=== PATIENT | male | born 1945 | race Caucasian/White ===

== ENCOUNTER 2018-03-06 21:07 | Inpatient (IN) | payer MEDICARE ==
[~2018-03-06] VITALS: Ht 167.6 cm; Wt 74.9 kg
[~2018-03-06 21:07] MED LIST: ALBU3IS INH; ALBU90OI6 INH; ASPI81CH PO; AZIT500 PO; Aspir 8181 MG PO; Ativan1 MG PO; CARV3.125 PO; CEFP200 PO; CEFU500 PO; CODGUAEL PO; FLUSAL2505 INH; FURO20 PO; GUAI600T33 PO; MILLIPRED DP5 MG PO; Metamucil Smooth1 EA PO; PRED10 PO; PREDNISONE; TAMS.4ER PO; TIOT18 INH
[2018-03-06] MEDS ORDERED: BUDE6HFA INH (21:22)
[2018-03-06 21:34] LABS: BASOPHILS ABSOLUTE AUTO 0.04 K/mm3 (0.00-0.23); BASOPHILS PERCENT AUTO 1 % (0-2); EOSINOPHILS ABSOLUTE AUTO 0.24 K/mm3 (0.00-0.68); EOSINOPHILS PERCENT AUTO 3 % (0-6); Hematocrit 43.6 % (37.0-53.0); Hemoglobin 14.2 g/dL (13.5-17.5); IMMATURE GRAN ABSOLUTE AUTO 0.03 K/mm3 (0.00-0.10); IMMATURE GRAN PERCENT AUTO 0 % (0-1); LYMPHOCYTES ABSOLUTE AUTO 1.33 K/mm3 (0.84-5.20); LYMPHOCYTES PERCENT AUTO 16 % (21-46); MONOCYTES ABSOLUTE AUTO 0.54 K/mm3 (0.16-1.47); MONOCYTES PERCENT AUTO 6 % (4-13); Mean Corpuscular HGB 29.4 pg (26.0-34.0); Mean Corpuscular HGB Conc 32.6 g/dL (31.5-36.5); Mean Corpuscular Volume 90 fL (80-100); NEUTROPHILS PERCENT AUTO 75 % (41-73); Platelet Count 282 K/mm3 (150-400); RDW Coefficient Variation 12.8 % (11.7-14.2); Red Blood Cell Count 4.83 M/mm3 (4.30-5.90); White Blood Cell Count 8.58 K/mm3 (4.00-11.30)
[2018-03-06 21:46] LABS: International Normalized Ratio 1.1; Prothrombin Time Results 11.5 Sec (9.7-11.5)
[2018-03-06 22:09] LABS: Alanine Aminotransfer (ALT/SGP 17 U/L (12-78); Albumin, Blood 3.7 g/dL (3.4-5.0); Albumin/Globulin Ratio 1.2 (0.8-1.8); Alk Phos 86 U/L (50-136); Anion Gap 2 mmol/L (6-16); Aspartate Aminotrans (AST/SGOT 18 U/L (12-37); Bilirubin, Total 0.3 mg/dL (0.1-1.0); Blood Urea Nitrogen 15 mg/dL (8-24); Bun/Creatinine Ratio 18.3 (12.0-20.0); CO2, Blood 35 mmol/L (21-32); Calcium, Blood 8.6 mg/dL (8.5-10.1); Chloride, Blood 103 mmol/L (98-108); Creatinine, Blood 0.82 mg/dL (0.60-1.20); Globulin, Blood 3.2 g/dL (2.2-4.0); Glomerular Filtration Rate >60 (60-); Glucose, Blood 110 mg/dL (70-99); Potassium, Blood 4.2 mmol/L (3.5-5.5); Sodium, Blood 140 mmol/L (136-145); Total Protein, Blood 6.9 g/dL (6.4-8.2); Troponin I <0.015 ng/mL (0.000-0.040)
[2018-03-06] MEDS ORDERED: GUAI600T33 PO (23:22)
[2018-03-06] MEDS ORDERED: FINA5 PO (23:23)
[2018-03-06] MEDS ORDERED: CARV6.25 PO (23:23)
[2018-03-06 23:32] LABS: Base Excess Venous 7.9 mmol/L; Bicarbonate Venous 29.5 mmol/L (24.0-30.0); PCO2 Venous 65.6 mmHg (38-42); PO2 Venous 83.5 mmHg (38-42); pH Blood Venous 7.32 (7.34-7.37)
[2018-03-07 04:56] LABS: BASOPHILS ABSOLUTE AUTO 0.01 K/mm3 (0.00-0.23); BASOPHILS PERCENT AUTO 0 % (0-2); EOSINOPHILS ABSOLUTE AUTO 0.02 K/mm3 (0.00-0.68); EOSINOPHILS PERCENT AUTO 0 % (0-6); Hematocrit 41.4 % (37.0-53.0); Hemoglobin 13.3 g/dL (13.5-17.5); IMMATURE GRAN ABSOLUTE AUTO 0.02 K/mm3 (0.00-0.10); IMMATURE GRAN PERCENT AUTO 0 % (0-1); LYMPHOCYTES ABSOLUTE AUTO 0.35 K/mm3 (0.84-5.20); LYMPHOCYTES PERCENT AUTO 5 % (21-46); MONOCYTES ABSOLUTE AUTO 0.03 K/mm3 (0.16-1.47); MONOCYTES PERCENT AUTO 0 % (4-13); Mean Corpuscular HGB 29.3 pg (26.0-34.0); Mean Corpuscular HGB Conc 32.1 g/dL (31.5-36.5); Mean Corpuscular Volume 91 fL (80-100); NEUTROPHILS PERCENT AUTO 94 % (41-73); Platelet Count 242 K/mm3 (150-400); RDW Coefficient Variation 12.8 % (11.7-14.2); RDW Standard Deviation 43.1 fL (35.1-46.3); Red Blood Cell Count 4.54 M/mm3 (4.30-5.90); White Blood Cell Count 6.93 K/mm3 (4.00-11.30)
[2018-03-07 05:21] LABS: Anion Gap 4 mmol/L (6-16); Blood Urea Nitrogen 11 mg/dL (8-24); Bun/Creatinine Ratio 15.9 (12.0-20.0); CO2, Blood 34 mmol/L (21-32); Calcium, Blood 8.6 mg/dL (8.5-10.1); Chloride, Blood 104 mmol/L (98-108); Creatinine, Blood 0.69 mg/dL (0.60-1.20); Glomerular Filtration Rate >60 (60-); Glucose, Blood 156 mg/dL (70-99); Potassium, Blood 4.9 mmol/L (3.5-5.5); Sodium, Blood 142 mmol/L (136-145)
[2018-03-07 07:12] LABS: U Amphetamine Screen Not Detected; U Barbituate Screen Not Detected; U Benzodiazapine Screen Not Detected; U Buprenorphine Screen Not Detected; U Cannabinoids Screen Not Detected; U Cocaine Screen Not Detected; U Methadone Screen Not Detected; U Methamphetamine Screen Not Detected; U Opiates Screen Not Detected; U Oxycodone Screen Not Detected; U Phencyclidine Screen Not Detected; U Propoxyphene Screen Not Detected
[2018-03-08 05:18] LABS: BASOPHILS PERCENT AUTO 0 % (0-2); EOSINOPHILS PERCENT AUTO 0 % (0-6); Hematocrit 38.6 % (37.0-53.0); Hemoglobin 12.4 g/dL (13.5-17.5); IMMATURE GRAN ABSOLUTE AUTO 0.07 K/mm3 (0.00-0.10); IMMATURE GRAN PERCENT AUTO 1 % (0-1); LYMPHOCYTES ABSOLUTE AUTO 0.54 K/mm3 (0.84-5.20); LYMPHOCYTES PERCENT AUTO 5 % (21-46); MONOCYTES ABSOLUTE AUTO 0.26 K/mm3 (0.16-1.47); MONOCYTES PERCENT AUTO 2 % (4-13); Mean Corpuscular HGB 29.2 pg (26.0-34.0); Mean Corpuscular HGB Conc 32.1 g/dL (31.5-36.5); Mean Corpuscular Volume 91 fL (80-100); Mean Platelet Volume 10.2 fL (9.1-12.4); NEUTROPHILS ABSOLUTE AUTO 11.11 K/mm3 (1.96-9.15); NEUTROPHILS PERCENT AUTO 93 % (41-73); Platelet Count 258 K/mm3 (150-400); RDW Standard Deviation 43.1 fL (35.1-46.3); Red Blood Cell Count 4.24 M/mm3 (4.30-5.90); White Blood Cell Count 11.98 K/mm3 (4.00-11.30)
[2018-03-08 05:35] LABS: Albumin, Blood 3.2 g/dL (3.4-5.0); Anion Gap 4 mmol/L (6-16); Blood Urea Nitrogen 18 mg/dL (8-24); CO2, Blood 37 mmol/L (21-32); Calcium, Blood 9.1 mg/dL (8.5-10.1); Chloride, Blood 101 mmol/L (98-108); Creatinine, Blood 0.86 mg/dL (0.60-1.20); Glomerular Filtration Rate >60 (60-); Glucose, Blood 159 mg/dL (70-99); Phosphorus, Blood 3.5 mg/dL (2.5-4.9); Potassium, Blood 4.1 mmol/L (3.5-5.5); Sodium, Blood 142 mmol/L (136-145)
[2018-03-11] MEDS ORDERED: HYDCHL25 PO (12:51)
[2018-03-11] MEDS ORDERED: PRED20 PO (12:53)
[2018-03-11] MEDS ORDERED: Ipratr-Albuterol3 ML INH (12:53)
== END 2018-03-11 14:18 | disposition home or self-care (01) | DRG 189 ==
LOC: ER 21:07 → MEDS 21:08
PROVIDERS: Emergency Medicine; Family Medicine
PROC: 5A09357 Assistance with Respiratory Ventilation, Less than 24 Consecutive Hours, Continuous Positive Airway Pressure (ICD-10-PCS; principal; 2018-03-06)
DX: J96.21 Acute and chronic respiratory failure with hypoxia (principal); J44.1 Chronic obstructive pulmonary disease with (acute) exacerbation; I10 Essential (primary) hypertension; N40.0 Benign prostatic hyperplasia without lower urinary tract symptoms; Z99.81 Dependence on supplemental oxygen; Z87.891 Personal history of nicotine dependence; Z91.013 Allergy to seafood; Z79.899 Other long term (current) drug therapy
CPT/HCPCS: 36415; 71045; 71046; 80048; 80053; 80069; 82803; 83605; 84484; 85025; 85610; 87040; 93005; 93010; 94640; 94660; 94664; 94667; 94760; 94762; 96361; 96365; 96375; 96376; 98960; 99285; G0378; J0360; J0456; J0696; J1650; J2930; J3475; J7030; J7050; J7120

== ENCOUNTER 2018-03-13 22:43 | Emergency (ER) | payer MEDICARE ==
[~2018-03-13] VITALS: Ht 167.6 cm; Wt 72.6 kg
[~2018-03-13 22:43] MED LIST changes: +BUDE6HFA INH; +CARV6.25 PO; +FINA5 PO; +HYDCHL25 PO; +Ipratr-Albuterol3 ML INH; +PRED20 PO
[2018-03-13] MEDS ORDERED: PRED5 PO (23:24)
[2018-03-13] MEDS ORDERED: HYDCHL12.5 PO (23:25)
[2018-03-13] MEDS ORDERED: CARV6.25 PO (23:25)
[2018-03-13] MEDS ORDERED: Omeprazole20 M1 PO (23:26)
[2018-03-13] MEDS ORDERED: Symbicort 16010.2 GM INH (23:27)
[2018-03-13] MEDS ORDERED: TIOT18 INH (23:28)
[2018-03-13] MEDS ORDERED: ASPIRIN-DIPYRI1 EACH PO (23:29)
[2018-03-13 23:46] LABS: PCO2 Arterial 59.3 mmHg (35-45); PO2 Arterial 92.3 mmHg (80-100); pH Blood Arterial 7.42 (7.35-7.45)
[2018-03-13 23:58] LABS: BASOPHILS ABSOLUTE AUTO 0.01 K/mm3 (0.00-0.23); BASOPHILS PERCENT AUTO 0 % (0-2); EOSINOPHILS ABSOLUTE AUTO 0.13 K/mm3 (0.00-0.68); EOSINOPHILS PERCENT AUTO 1 % (0-6); Hematocrit 43.5 % (37.0-53.0); Hemoglobin 14.4 g/dL (13.5-17.5); IMMATURE GRAN ABSOLUTE AUTO 0.07 K/mm3 (0.00-0.10); IMMATURE GRAN PERCENT AUTO 1 % (0-1); LYMPHOCYTES PERCENT AUTO 14 % (21-46); MONOCYTES ABSOLUTE AUTO 0.92 K/mm3 (0.16-1.47); MONOCYTES PERCENT AUTO 7 % (4-13); Mean Corpuscular HGB 29.7 pg (26.0-34.0); Mean Corpuscular HGB Conc 33.1 g/dL (31.5-36.5); Mean Corpuscular Volume 90 fL (80-100); Mean Platelet Volume 10.3 fL (9.1-12.4); NEUTROPHILS ABSOLUTE AUTO 10.22 K/mm3 (1.96-9.15); NEUTROPHILS PERCENT AUTO 78 % (41-73); Platelet Count 255 K/mm3 (150-400); RDW Coefficient Variation 12.7 % (11.7-14.2); RDW Standard Deviation 41.5 fL (35.1-46.3); Red Blood Cell Count 4.85 M/mm3 (4.30-5.90); White Blood Cell Count 13.15 K/mm3 (4.00-11.30)
[2018-03-14 00:19] LABS: Alanine Aminotransfer (ALT/SGP 35 U/L (12-78); Albumin, Blood 3.5 g/dL (3.4-5.0); Albumin/Globulin Ratio 1.1 (0.8-1.8); Alk Phos 66 U/L (50-136); Anion Gap 4 mmol/L (6-16); Aspartate Aminotrans (AST/SGOT 20 U/L (12-37); Bilirubin, Total 0.4 mg/dL (0.1-1.0); Blood Urea Nitrogen 20 mg/dL (8-24); Bun/Creatinine Ratio 26.6 (12.0-20.0); CO2, Blood 35 mmol/L (21-32); Calcium, Blood 8.7 mg/dL (8.5-10.1); Chloride, Blood 99 mmol/L (98-108); Creatinine, Blood 0.75 mg/dL (0.60-1.20); Globulin, Blood 3.1 g/dL (2.2-4.0); Glomerular Filtration Rate >60 (60-); Glucose, Blood 104 mg/dL (70-99); Potassium, Blood 4.5 mmol/L (3.5-5.5); Sodium, Blood 138 mmol/L (136-145); Total Protein, Blood 6.6 g/dL (6.4-8.2); Troponin I <0.015 ng/mL (0.000-0.040)
[2018-03-14] MEDS ORDERED: Mucinex600 MG PO (01:12)
== END 2018-03-14 01:25 | disposition home or self-care (01) ==
LOC: ER 22:43
PROVIDERS: Emergency Medicine
DX: J44.9 Chronic obstructive pulmonary disease, unspecified (principal); F17.210 Nicotine dependence, cigarettes, uncomplicated; Z79.899 Other long term (current) drug therapy; Z79.52 Long term (current) use of systemic steroids; Z79.82 Long term (current) use of aspirin
CPT/HCPCS: 36600; 71046; 80053; 82803; 84484; 85025; 93005; 93010

== ENCOUNTER → 2018-07-15 | Outpatient (CLI) | payer MEDICARE ==
[~2018-07-15] MED LIST changes: +ASPIRIN-DIPYRI1 EACH PO; +HYDCHL12.5 PO; +Mucinex600 MG PO; +Omeprazole20 M1 PO; +PRED5 PO; +Symbicort 16010.2 GM INH
== END | disposition home or self-care (01) ==
LOC: LAB SHORT 16:57 → LAB 16:57
DX: L02.12 Furuncle of neck (principal); L02.02 Furuncle of face
CPT/HCPCS: 87070; 87205

== ENCOUNTER → 2019-01-06 | Outpatient (CLI) | payer MEDICARE | END | disposition home or self-care (01) | LOC: LAB SHORT 17:23 → LAB 17:23 | DX: L73.8 Other specified follicular disorders (principal) | CPT/HCPCS: 87070; 87205 ==

== ENCOUNTER 2019-02-05 00:35 | Inpatient (IN) | payer MEDICARE ==
[~2019-02-05] VITALS: Ht 170.2 cm; Wt 72.6 kg
[2019-02-05 01:15] LABS: PCO2 Arterial 65.7 mmHg (35-45); PO2 Arterial 95.7 mmHg (80-100); pH Blood Arterial 7.33 (7.35-7.45)
[2019-02-05 01:22] LABS: BASOPHILS ABSOLUTE AUTO 0.04 K/mm3 (0.00-0.23); BASOPHILS PERCENT AUTO 0 % (0-2); EOSINOPHILS ABSOLUTE AUTO 0.03 K/mm3 (0.00-0.68); EOSINOPHILS PERCENT AUTO 0 % (0-6); Hematocrit 46.6 % (37.0-53.0); Hemoglobin 14.5 g/dL (13.5-17.5); IMMATURE GRAN ABSOLUTE AUTO 0.02 K/mm3 (0.00-0.10); IMMATURE GRAN PERCENT AUTO 0 % (0-1); LYMPHOCYTES ABSOLUTE AUTO 1.13 K/mm3 (0.84-5.20); LYMPHOCYTES PERCENT AUTO 12 % (21-46); MONOCYTES ABSOLUTE AUTO 0.42 K/mm3 (0.16-1.47); MONOCYTES PERCENT AUTO 5 % (4-13); Mean Corpuscular HGB Conc 31.1 g/dL (31.5-36.5); Mean Corpuscular Volume 93 fL (80-100); Mean Platelet Volume 10.2 fL (9.1-12.4); NEUTROPHILS ABSOLUTE AUTO 7.76 K/mm3 (1.96-9.15); NEUTROPHILS PERCENT AUTO 83 % (41-73); Platelet Count 282 K/mm3 (150-400); RDW Coefficient Variation 13.1 % (11.7-14.2); RDW Standard Deviation 44.9 fL (35.1-46.3)
[2019-02-05 01:43] LABS: Alanine Aminotransfer (ALT/SGP 19 U/L (12-78); Albumin, Blood 4.1 g/dL (3.4-5.0); Albumin/Globulin Ratio 1.2 (0.8-1.8); Alk Phos 114 U/L (50-136); Anion Gap 4 mmol/L (6-16); Aspartate Aminotrans (AST/SGOT 14 U/L (12-37); Bilirubin, Total 0.4 mg/dL (0.1-1.0); Blood Urea Nitrogen 11 mg/dL (8-24); Bun/Creatinine Ratio 15.1 (12.0-20.0); CO2, Blood 35 mmol/L (21-32); Calcium, Blood 8.9 mg/dL (8.5-10.1); Chloride, Blood 100 mmol/L (98-108); Creatinine, Blood 0.73 mg/dL (0.60-1.20); Globulin, Blood 3.3 g/dL (2.2-4.0); Glomerular Filtration Rate >60 (60-); Glucose, Blood 140 mg/dL (70-99); Potassium, Blood 4.5 mmol/L (3.5-5.5); Sodium, Blood 139 mmol/L (136-145); Total Protein, Blood 7.4 g/dL (6.4-8.2); Troponin I <0.015 ng/mL (0.000-0.040)
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
[2019-02-05 05:46] LABS: Adenovirus Not Detected (NOT DETECT); Bordetella pertussis Not Detected (NOT DETECT); Chlamydophila pneumoniae Not Detected (NOT DETECT); Coronavirus 229E Not Detected (NOT DETECT); Coronavirus HKU1 Not Detected (NOT DETECT); Coronavirus NL63 Not Detected (NOT DETECT); Coronavirus OC43 Not Detected (NOT DETECT); Human Metapneumovirus Not Detected (NOT DETECT); Human Rhinovirus/Enterovirus Not Detected (NOT DETECT); Influenza A Not Detected (NOT DETECT); Influenza A/2009-H1 Not Detected (NOT DETECT); Influenza A/H1 Not Detected (NOT DETECT); Influenza A/H3 Not Detected (NOT DETECT); Influenza B Not Detected (NOT DETECT); Mycoplasma pneumoniae Not Detected (NOT DETECT); Parainfluenza Virus 1 Not Detected (NOT DETECT); Parainfluenza Virus 2 Not Detected (NOT DETECT); Parainfluenza Virus 3 Not Detected (NOT DETECT); Parainfluenza Virus 4 Not Detected (NOT DETECT); Respiratory Syncytial Virus Not Detected (NOT DETECT)
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
[2019-02-05 09:46] LABS: Hematocrit 44.8 % (37.0-53.0); Hemoglobin 14.1 g/dL (13.5-17.5); Mean Corpuscular HGB 28.8 pg (26.0-34.0); Mean Corpuscular HGB Conc 31.5 g/dL (31.5-36.5); Mean Corpuscular Volume 91 fL (80-100); Mean Platelet Volume 10.3 fL (9.1-12.4); Platelet Count 285 K/mm3 (150-400); RDW Coefficient Variation 13.1 % (11.7-14.2); RDW Standard Deviation 44.3 fL (35.1-46.3); White Blood Cell Count 6.67 K/mm3 (4.00-11.30)
[2019-02-05 10:10] LABS: Alanine Aminotransfer (ALT/SGP 18 U/L (12-78); Albumin, Blood 3.7 g/dL (3.4-5.0); Albumin/Globulin Ratio 1.2 (0.8-1.8); Alk Phos 105 U/L (50-136); Anion Gap 4 mmol/L (6-16); Aspartate Aminotrans (AST/SGOT 15 U/L (12-37); Bilirubin, Total 0.3 mg/dL (0.1-1.0); Blood Urea Nitrogen 11 mg/dL (8-24); Bun/Creatinine Ratio 17.1 (12.0-20.0); CO2, Blood 34 mmol/L (21-32); Calcium, Blood 8.8 mg/dL (8.5-10.1); Chloride, Blood 99 mmol/L (98-108); Creatinine, Blood 0.65 mg/dL (0.60-1.20); Globulin, Blood 3.2 g/dL (2.2-4.0); Glomerular Filtration Rate >60 (60-); Glucose, Blood 280 mg/dL (70-99); Potassium, Blood 4.6 mmol/L (3.5-5.5); Sodium, Blood 137 mmol/L (136-145); Total Protein, Blood 6.9 g/dL (6.4-8.2)
--- NOTE | 2019-02-05 14:16 | NUR ---
pt sitting on side of bed, watching tv, and visiting with whomever comes in room. call light in reach.
--- NOTE | 2019-02-05 15:42 | NUR ---
pt just recieved a breathing tx, doing ok. no complaints. call light in reach.
--- NOTE | 2019-02-05 18:29 | NUR ---
pt sitting up on the side of the bed, very talkative, no complaints, states he is feeling better, no acutes changes this shift, call light in reach.
--- NOTE | 2019-02-05 23:27 | NUR ---
ASSUMED CARE OF PATIENT AT APPROXIMATELY 1905 FROM THADDEUS Linares RN. PATIENT ALERT AND ORIENTED X4; INDEPENDENT IN ROOM; PATIENT REMINDED TO USE NONSLIP SOCKS WHILE UP IN ROOM. PATIENT DENIES PAIN BUT REPORTS CRAMPS IN FEET THAT COME AND GO FOR MONTHS NOW. PATIENT DENIES NUMBNESS, TINGLING, DIZZINESS AND NAUSEA. PATIENT VERY TALKATIVE. NSR ON TELE; OXYGEN SATURATION ABOVE 90% ON 2LPM (REPORTED BASELINE). PIV S/L. PATIENT CURRENTLY RESTING IN BED; CALL LIGHT IN REACH; BED IN LOWEST POSISTION; WILL CONTINUE TO MONITOR AND ASSESS UNTIL END OF SHIFT.
--- NOTE | 2019-02-06 06:41 | NUR ---
NO ACUTE CHANGES TO REPORT. PATIENT SLEPT ABOUT EIGHT HOURS LAST NIGHT. WILL CONTINUE TO MONITOR AND ASSESS UNTIL END OF SHIFT.
--- NOTE | 2019-02-06 08:34 | NUR ---
pt sitting on the side of the bed eating breakfast, a/ox3, pleasant and cooperative with care, follows commands well, states he had a pretty good night, denies pain, lungs are clear in [place], very dim and tight in bases, resp even and unlabored at rest, is on 2 liters 02 via n/c, no cough noted, or reported, hrr, tele in place running sr to st per monitor, see strip, no edema noted, ppp+2, cap refill <3 sec, vs stable, afebrile, iv site is clear and patent, btx4, abd flat soft nontender, voids small amounts at a time, reg bm's, skin c/w/d, maew, up indep in room, gait noted to be steady, magdiel, call light in reach.
--- NOTE | 2019-02-06 17:06 | NUR ---
REPORT RECIEVED FROM LEWIS JULES AT 1701. AWAITING PT ARRIVAL AT THIS TIME
--- NOTE | 2019-02-06 18:38 | NUR ---
pt had an uneventful day, no complaints. was transfered to medical floor report was given to recieving nurse. left via wheelchair with all his belongings.
--- NOTE | 2019-02-07 05:03 | NUR ---
73 Y/O MALE RESTED COMFORTABLY ALL EVENING. PTS LUNG SOUNDS ARE DIMINISHED THROUGHOUT WHILE WEARING O2 AT 2L/M PER NASAL CANNULA. PT HAPPY AND COOPERATIVE DURING ASSESSMENTS WITH STAFF. PT DENIES PAIN OR NAUSEA. PTS BED IN LOW POSITION, CALL LIGHT AT SIDE.
--- NOTE | 2019-02-07 18:44 | NUR ---
SHIFT SUMMARY PT AXO, PLEASANT AND COOPERATIVE WITH CARE. NO ACUTE CHANGES THIS SHIFT. PT INDEPENDENT TO BATHROOM FREQUENTLY FOR URINARY FREQUENCY. PT REFUSES TO USE URINAL IN ORDER TO MEASURE. BED IN LOW POSITION, CALL LIGHT WITHIN REACH. DENIES SOB, NV AND PAIN
[2019-02-08 05:18] LABS: Anion Gap 3 mmol/L (6-16); Blood Urea Nitrogen 24 mg/dL (8-24); Bun/Creatinine Ratio 30.2 (12.0-20.0); CO2, Blood 36 mmol/L (21-32); Calcium, Blood 8.5 mg/dL (8.5-10.1); Chloride, Blood 104 mmol/L (98-108); Glomerular Filtration Rate >60 (60-); Glucose, Blood 127 mg/dL (70-99); Potassium, Blood 4.3 mmol/L (3.5-5.5); Sodium, Blood 143 mmol/L (136-145)
--- NOTE | 2019-02-08 05:53 | NUR ---
73 Y/O MALE RESTED COMFORTABLY IN BED ALL EVENING WHILE WEARING O2 AT 2L/M PER NASAL CANNULA. LUNG SOUNDS ARE DIMINISHED THROUGHOUT. PT HAPPY AND COOPERATIVE. PT DENIES NAUSEA OR PAIN. PTS BED LOW POSITION, CALL LIGHT AT SIDE.
[2019-02-08] MEDS ORDERED: AZIT250 PO (11:52)
[2019-02-08] MEDS ORDERED: PRED20 PO (11:54)
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
== END 2019-02-08 14:00 | disposition home or self-care (01) | DRG 189 ==
LOC: ER 00:35 → PCU 03:08 → MEDS 04:10
PROVIDERS: Emergency Medicine; Hospitalist; ADMIT Internal Medicine
DX: J96.21 Acute and chronic respiratory failure with hypoxia (principal); J44.1 Chronic obstructive pulmonary disease with (acute) exacerbation; I10 Essential (primary) hypertension; N40.0 Benign prostatic hyperplasia without lower urinary tract symptoms; F17.210 Nicotine dependence, cigarettes, uncomplicated; Z99.81 Dependence on supplemental oxygen; Z77.110 Contact with and (suspected) exposure to air pollution; Z79.02 Long term (current) use of antithrombotics/antiplatelets; Z79.82 Long term (current) use of aspirin; Z79.51 Long term (current) use of inhaled steroids; Z79.52 Long term (current) use of systemic steroids; Z79.899 Other long term (current) drug therapy
CPT/HCPCS: 36415; 36600; 71046; 80048; 80053; 82803; 83735; 84484; 85025; 85027; 87486; 87581; 87633; 87798; 93005; 93010; 94640; 94644; 94760; 96374; 99285-25; J1650; J2930; J7512

== ENCOUNTER 2019-02-25 18:03 | Observation (INO) | payer MEDICARE ==
[~2019-02-25] VITALS: Ht 167.6 cm; Wt 69.6 kg
[~2019-02-25 18:03] MED LIST changes: +AZIT250 PO
[2019-02-25 18:47] LABS: BASOPHILS ABSOLUTE AUTO 0.04 K/mm3 (0.00-0.23); BASOPHILS PERCENT AUTO 1 % (0-2); EOSINOPHILS ABSOLUTE AUTO 0.16 K/mm3 (0.00-0.68); EOSINOPHILS PERCENT AUTO 2 % (0-6); Hematocrit 43.1 % (37.0-53.0); Hemoglobin 13.3 g/dL (13.5-17.5); IMMATURE GRAN ABSOLUTE AUTO 0.02 K/mm3 (0.00-0.10); IMMATURE GRAN PERCENT AUTO 0 % (0-1); LYMPHOCYTES ABSOLUTE AUTO 1.44 K/mm3 (0.84-5.20); LYMPHOCYTES PERCENT AUTO 18 % (21-46); MONOCYTES ABSOLUTE AUTO 0.51 K/mm3 (0.16-1.47); MONOCYTES PERCENT AUTO 7 % (4-13); Mean Corpuscular HGB 28.9 pg (26.0-34.0); Mean Corpuscular HGB Conc 30.9 g/dL (31.5-36.5); Mean Corpuscular Volume 94 fL (80-100); Mean Platelet Volume 9.7 fL (9.1-12.4); NEUTROPHILS ABSOLUTE AUTO 5.64 K/mm3 (1.96-9.15); NEUTROPHILS PERCENT AUTO 72 % (41-73); Platelet Count 270 K/mm3 (150-400); RDW Coefficient Variation 13.3 % (11.7-14.2); RDW Standard Deviation 45.5 fL (35.1-46.3); Red Blood Cell Count 4.61 M/mm3 (4.30-5.90); White Blood Cell Count 7.81 K/mm3 (4.00-11.30)
[2019-02-25 19:12] LABS: Troponin I <0.015 ng/mL (0.000-0.040)
[2019-02-25 19:13] LABS: Alanine Aminotransfer (ALT/SGP 24 U/L (12-78); Albumin, Blood 3.5 g/dL (3.4-5.0); Albumin/Globulin Ratio 1.1 (0.8-1.8); Alk Phos 76 U/L (50-136); Anion Gap 1 mmol/L (6-16); Aspartate Aminotrans (AST/SGOT 15 U/L (12-37); Bilirubin, Total 0.2 mg/dL (0.1-1.0); Blood Urea Nitrogen 19 mg/dL (8-24); Bun/Creatinine Ratio 25.8 (12.0-20.0); CO2, Blood 34 mmol/L (21-32); Chloride, Blood 107 mmol/L (98-108); Creatinine, Blood 0.74 mg/dL (0.60-1.20); Globulin, Blood 3.3 g/dL (2.2-4.0); Glomerular Filtration Rate >60 (60-); Glucose, Blood 139 mg/dL (70-99); Potassium, Blood 4.1 mmol/L (3.5-5.5); Sodium, Blood 142 mmol/L (136-145); Total Protein, Blood 6.8 g/dL (6.4-8.2)
[2019-02-25 20:21] LABS: PCO2 Arterial 62.5 mmHg (35-45); PO2 Arterial 75.8 mmHg (80-100); pH Blood Arterial 7.34 (7.35-7.45)
[2019-02-25] MEDS ORDERED: ASPI325EC PO (21:05)
[2019-02-25] MEDS ORDERED: DOXY100 PO (21:06)
[2019-02-25] MEDS ORDERED: TIOT18 INH (22:17)
[2019-02-26 03:57] LABS: BASOPHILS ABSOLUTE AUTO 0.01 K/mm3 (0.00-0.23); BASOPHILS PERCENT AUTO 0 % (0-2); EOSINOPHILS PERCENT AUTO 0 % (0-6); Hematocrit 40.3 % (37.0-53.0); Hemoglobin 12.6 g/dL (13.5-17.5); IMMATURE GRAN ABSOLUTE AUTO 0.03 K/mm3 (0.00-0.10); IMMATURE GRAN PERCENT AUTO 0 % (0-1); LYMPHOCYTES PERCENT AUTO 4 % (21-46); MONOCYTES ABSOLUTE AUTO 0.01 K/mm3 (0.16-1.47); MONOCYTES PERCENT AUTO 0 % (4-13); Mean Corpuscular HGB 28.9 pg (26.0-34.0); Mean Corpuscular HGB Conc 31.3 g/dL (31.5-36.5); Mean Corpuscular Volume 92 fL (80-100); Mean Platelet Volume 9.8 fL (9.1-12.4); NEUTROPHILS ABSOLUTE AUTO 6.55 K/mm3 (1.96-9.15); NEUTROPHILS PERCENT AUTO 95 % (41-73); Platelet Count 206 K/mm3 (150-400); RDW Coefficient Variation 13.2 % (11.7-14.2); RDW Standard Deviation 44.9 fL (35.1-46.3); Red Blood Cell Count 4.36 M/mm3 (4.30-5.90)
[2019-02-26 04:17] LABS: Anion Gap 2 mmol/L (6-16); Blood Urea Nitrogen 18 mg/dL (8-24); Bun/Creatinine Ratio 23.5 (12.0-20.0); CO2, Blood 35 mmol/L (21-32); Calcium, Blood 8.8 mg/dL (8.5-10.1); Chloride, Blood 106 mmol/L (98-108); Creatinine, Blood 0.77 mg/dL (0.60-1.20); Glomerular Filtration Rate >60 (60-); Glucose, Blood 190 mg/dL (70-99); Potassium, Blood 4.7 mmol/L (3.5-5.5); Sodium, Blood 143 mmol/L (136-145)
--- NOTE | 2019-02-26 05:51 | NUR ---
PCU NOC SHIFT- ADMIT SUMMARY PATIENT ALERT AND ORIENTED X4. INDEPENDANT IN ROOM. AMBULATED FROM ER GURNEY TO UNIT BED WITH STEADY GAIT. L/S DIM T/O. PATIENT ON HOME DOSE OF OXYGEN AT 2 LPM. MODERATE TACHYPENIA NOTED WITH EXCERTION; PATIENT TOLERTATES WELL. NO ACUTE DISTRESS T/O SHIFT. PATIENT DENIES ANY PAIN. WILL CONTINUE TO MONITOR; CALL LIGHT W/I REACH.
--- NOTE | 2019-02-26 08:00 | NUR ---
pt sitting up on the side of the bed a/ox3, pleasant and cooperative with care, follows commands well, denies pain, just sob, lungs are very dim t/o, resp even and unlabored, no cough noted, he reports nothing is coming up, he is currently on 2 liters via n/c which is his home dose, sats 95%, hrr, tele in place running sr to st per monitor, see strip, no edema noted, ppp+2, cap refill <3sec, vs stable, afebrile, iv site is clear and patent, btx4, abd flat soft nontender, voids without diff, skin c/w/d, maew, magdiel, call light in reach.
[2019-02-26] MEDS ORDERED: PRED10 PO (09:33)
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
== END 2019-02-26 12:22 | disposition home or self-care (01) ==
LOC: ER 18:03 → PCU 18:04 → ER 21:35 → PCU 21:35
PROVIDERS: Emergency Medicine; Nurse Practitioner Acute Care; ADMIT Internal Medicine
DX: J44.1 Chronic obstructive pulmonary disease with (acute) exacerbation (principal); J96.21 Acute and chronic respiratory failure with hypoxia; J96.22 Acute and chronic respiratory failure with hypercapnia; L08.9 Local infection of the skin and subcutaneous tissue, unspecified; I10 Essential (primary) hypertension; N40.0 Benign prostatic hyperplasia without lower urinary tract symptoms; Z99.81 Dependence on supplemental oxygen; Z79.899 Other long term (current) drug therapy; Z79.82 Long term (current) use of aspirin; Z91.013 Allergy to seafood
CPT/HCPCS: 36415; 36600; 71046; 80048; 80053; 82803; 83880; 84484; 85025; 93005; 93010; 94644; 96374; 99285-25; J1650; J2930; J7512

== ENCOUNTER 2019-06-02 22:59 | Emergency (ER) | payer MEDICARE ==
[~2019-06-02] VITALS: Ht 167.6 cm; Wt 72.6 kg
[~2019-06-02 22:59] MED LIST changes: +ASPI325EC PO; +DOXY100 PO; -Symbicort 16010.2 GM INH
[2019-06-02] MEDS ORDERED: OMEP20ER PO (23:37)
[2019-06-02] MEDS ORDERED: AZIT250 PO (23:38)
[2019-06-02 23:48] LABS: BASOPHILS ABSOLUTE AUTO 0.03 K/mm3 (0.00-0.23); BASOPHILS PERCENT AUTO 0 % (0-2); EOSINOPHILS ABSOLUTE AUTO 0.01 K/mm3 (0.00-0.68); EOSINOPHILS PERCENT AUTO 0 % (0-6); Hematocrit 44.2 % (37.0-53.0); Hemoglobin 14.4 g/dL (13.5-17.5); IMMATURE GRAN ABSOLUTE AUTO 0.01 K/mm3 (0.00-0.10); IMMATURE GRAN PERCENT AUTO 0 % (0-1); LYMPHOCYTES ABSOLUTE AUTO 1.24 K/mm3 (0.84-5.20); LYMPHOCYTES PERCENT AUTO 12 % (21-46); MONOCYTES ABSOLUTE AUTO 0.64 K/mm3 (0.16-1.47); MONOCYTES PERCENT AUTO 6 % (4-13); Mean Corpuscular HGB 29.6 pg (26.0-34.0); Mean Corpuscular HGB Conc 32.6 g/dL (31.5-36.5); Mean Corpuscular Volume 91 fL (80-100); Mean Platelet Volume 9.8 fL (9.1-12.4); NEUTROPHILS ABSOLUTE AUTO 8.13 K/mm3 (1.96-9.15); NEUTROPHILS PERCENT AUTO 81 % (41-73); Platelet Count 297 K/mm3 (150-400); RDW Coefficient Variation 13.1 % (11.7-14.2); RDW Standard Deviation 43.5 fL (35.1-46.3); Red Blood Cell Count 4.87 M/mm3 (4.30-5.90); White Blood Cell Count 10.06 K/mm3 (4.00-11.30)
[2019-06-03 00:06] LABS: Alanine Aminotransfer (ALT/SGP 19 U/L (12-78); Albumin, Blood 4.1 g/dL (3.4-5.0); Albumin/Globulin Ratio 1.4 (0.8-1.8); Alk Phos 78 U/L (50-136); Anion Gap 7 mmol/L (6-16); Aspartate Aminotrans (AST/SGOT 18 U/L (12-37); Bilirubin, Total 0.5 mg/dL (0.1-1.0); Blood Urea Nitrogen 11 mg/dL (8-24); CO2, Blood 33 mmol/L (21-32); Calcium, Blood 9.2 mg/dL (8.5-10.1); Chloride, Blood 99 mmol/L (98-108); Creatinine, Blood 0.84 mg/dL (0.60-1.20); Globulin, Blood 2.9 g/dL (2.2-4.0); Glomerular Filtration Rate >60 (60-); Glucose, Blood 111 mg/dL (70-99); Potassium, Blood 4.1 mmol/L (3.5-5.5); Sodium, Blood 139 mmol/L (136-145)
[2019-06-03] MEDS ORDERED: Prednisone50 MG PO (00:23)
[2019-06-03] MEDS ORDERED: Ativan1 MG PO (00:23)
[2019-06-03] MEDS ORDERED: ALBU3IS INH (00:23)
== END 2019-06-03 02:17 | disposition home or self-care (01) ==
LOC: ER 22:59
PROVIDERS: Emergency Medicine
DX: J44.1 Chronic obstructive pulmonary disease with (acute) exacerbation (principal); Z91.013 Allergy to seafood; Z91.018 Allergy to other foods; Z79.899 Other long term (current) drug therapy; Z79.82 Long term (current) use of aspirin; Z79.52 Long term (current) use of systemic steroids; F41.9 Anxiety disorder, unspecified; I10 Essential (primary) hypertension; Z87.891 Personal history of nicotine dependence; Z85.46 Personal history of malignant neoplasm of prostate
CPT/HCPCS: 36415; 71045; 80053; 85025; 93005; 93010; 94640; 96374; 99285-25; J1100

== ENCOUNTER 2019-06-19 16:16 | Emergency (ER) | payer MEDICARE ==
[~2019-06-19] VITALS: Ht 167.6 cm; Wt 70.3 kg
[~2019-06-19 16:16] MED LIST changes: +OMEP20ER PO; +Prednisone50 MG PO
[2019-06-19 16:42] LABS: BASOPHILS ABSOLUTE AUTO 0.02 K/mm3 (0.00-0.23); BASOPHILS PERCENT AUTO 0 % (0-2); EOSINOPHILS ABSOLUTE AUTO 0.01 K/mm3 (0.00-0.68); EOSINOPHILS PERCENT AUTO 0 % (0-6); Hematocrit 42.4 % (37.0-53.0); IMMATURE GRAN ABSOLUTE AUTO 0.02 K/mm3 (0.00-0.10); IMMATURE GRAN PERCENT AUTO 0 % (0-1); LYMPHOCYTES ABSOLUTE AUTO 0.94 K/mm3 (0.84-5.20); LYMPHOCYTES PERCENT AUTO 11 % (21-46); MONOCYTES ABSOLUTE AUTO 0.37 K/mm3 (0.16-1.47); MONOCYTES PERCENT AUTO 4 % (4-13); Mean Corpuscular HGB 30.4 pg (26.0-34.0); Mean Corpuscular Volume 92 fL (80-100); NEUTROPHILS ABSOLUTE AUTO 7.01 K/mm3 (1.96-9.15); NEUTROPHILS PERCENT AUTO 84 % (41-73); Platelet Count 251 K/mm3 (150-400); RDW Coefficient Variation 12.2 % (11.7-14.2); RDW Standard Deviation 41.2 fL (35.1-46.3); Red Blood Cell Count 4.61 M/mm3 (4.30-5.90); White Blood Cell Count 8.37 K/mm3 (4.00-11.30)
[2019-06-19 17:06] LABS: Alanine Aminotransfer (ALT/SGP 23 U/L (12-78); Albumin, Blood 3.7 g/dL (3.4-5.0); Albumin/Globulin Ratio 1.3 (0.8-1.8); Alk Phos 65 U/L (50-136); Anion Gap 4 mmol/L (6-16); Aspartate Aminotrans (AST/SGOT 17 U/L (12-37); Bilirubin, Total 0.6 mg/dL (0.1-1.0); Blood Urea Nitrogen 17 mg/dL (8-24); Bun/Creatinine Ratio 20.2 (12.0-20.0); CO2, Blood 30 mmol/L (21-32); Calcium, Blood 8.9 mg/dL (8.5-10.1); Chloride, Blood 103 mmol/L (98-108); Creatinine, Blood 0.84 mg/dL (0.60-1.20); Globulin, Blood 2.8 g/dL (2.2-4.0); Glomerular Filtration Rate >60 (60-); Glucose, Blood 163 mg/dL (70-99); Potassium, Blood 4.1 mmol/L (3.5-5.5); Sodium, Blood 137 mmol/L (136-145); Total Protein, Blood 6.5 g/dL (6.4-8.2); Troponin I <0.015 ng/mL (0.000-0.040)
[2019-06-19 17:27] LABS: International Normalized Ratio 1.1; Prothrombin Time Results 11.6 Sec (9.7-11.5)
[2019-06-19] MEDS ORDERED: LORA.5 PO (18:51)
== END 2019-06-19 19:30 | disposition home or self-care (01) ==
LOC: ER 16:16
PROVIDERS: Emergency Medicine; Physician Assistant
DX: F41.9 Anxiety disorder, unspecified (principal); J96.10 Chronic respiratory failure, unspecified whether with hypoxia or hypercapnia; Z91.018 Allergy to other foods; Z91.013 Allergy to seafood; Z79.899 Other long term (current) drug therapy; Z79.82 Long term (current) use of aspirin; Z79.52 Long term (current) use of systemic steroids; J44.9 Chronic obstructive pulmonary disease, unspecified; I10 Essential (primary) hypertension; Z87.891 Personal history of nicotine dependence
CPT/HCPCS: 36415; 71046; 80053; 83615; 83880; 84484; 85025; 85610; 93005; 93010; 94640; 96374; 99285-25; J2060

== ENCOUNTER 2019-08-12 21:28 | Inpatient (IN) | payer MEDICARE ==
[~2019-08-12] VITALS: Ht 167.6 cm; Wt 63.5 kg
[~2019-08-12 21:28] MED LIST changes: +LORA.5 PO
[2019-08-12 21:53] LABS: BASOPHILS ABSOLUTE AUTO 0.03 K/mm3 (0.00-0.23); BASOPHILS PERCENT AUTO 0 % (0-2); EOSINOPHILS ABSOLUTE AUTO 0.06 K/mm3 (0.00-0.68); EOSINOPHILS PERCENT AUTO 1 % (0-6); Hematocrit 42.2 % (37.0-53.0); Hemoglobin 13.6 g/dL (13.5-17.5); IMMATURE GRAN ABSOLUTE AUTO 0.01 K/mm3 (0.00-0.10); IMMATURE GRAN PERCENT AUTO 0 % (0-1); LYMPHOCYTES ABSOLUTE AUTO 1.44 K/mm3 (0.84-5.20); LYMPHOCYTES PERCENT AUTO 21 % (21-46); MONOCYTES ABSOLUTE AUTO 0.52 K/mm3 (0.16-1.47); MONOCYTES PERCENT AUTO 8 % (4-13); Mean Corpuscular HGB Conc 32.2 g/dL (31.5-36.5); Mean Corpuscular Volume 93 fL (80-100); Mean Platelet Volume 10.5 fL (9.1-12.4); NEUTROPHILS ABSOLUTE AUTO 4.83 K/mm3 (1.96-9.15); NEUTROPHILS PERCENT AUTO 70 % (41-73); Platelet Count 239 K/mm3 (150-400); RDW Coefficient Variation 12.4 % (11.7-14.2); RDW Standard Deviation 43.2 fL (35.1-46.3); Red Blood Cell Count 4.53 M/mm3 (4.30-5.90); White Blood Cell Count 6.89 K/mm3 (4.00-11.30)
[2019-08-12 22:11] LABS: Alanine Aminotransfer (ALT/SGP 14 U/L (12-78); Albumin, Blood 3.6 g/dL (3.4-5.0); Albumin/Globulin Ratio 1.4 (0.8-1.8); Alk Phos 72 U/L (50-136); Anion Gap 5 mmol/L (6-16); Aspartate Aminotrans (AST/SGOT 14 U/L (12-37); Bilirubin, Total 0.3 mg/dL (0.1-1.0); Blood Urea Nitrogen 16 mg/dL (8-24); Bun/Creatinine Ratio 18.6 (12.0-20.0); CO2, Blood 33 mmol/L (21-32); Calcium, Blood 8.8 mg/dL (8.5-10.1); Chloride, Blood 106 mmol/L (98-108); Creatinine, Blood 0.86 mg/dL (0.60-1.20); Globulin, Blood 2.6 g/dL (2.2-4.0); Glomerular Filtration Rate >60 (60-); Glucose, Blood 136 mg/dL (70-99); Potassium, Blood 3.6 mmol/L (3.5-5.5); Sodium, Blood 144 mmol/L (136-145); Total Protein, Blood 6.2 g/dL (6.4-8.2); Troponin I <0.015 ng/mL (0.000-0.040)
--- NOTE | 2019-08-13 00:29 | NUR ---
transfer report on 72 year old MAle with COPD, home oxygen 2 to 4 l nc and anxiety. CO chest pain SOB. Reprt from LEWIS Bustos. Await admission.
[2019-08-13] MEDS ORDERED: TRAZ100 PO (01:20)
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
--- NOTE | 2019-08-13 18:26 | NUR ---
SHIFT SUMMARY OX3 SBA. TEARFUL AND QUITE ANXIOUS AT TIMES DUE TO 'S RECENT PASSING. FREQUENT BREATHING TREATMENTS. LS DIMINISHED THROUGHOUT. COPD. 2-4L 02 PER NC AT HOME AND HERE. SPIRITUAL CARE REQUEST PLACED AND SHOULD BE COMPLETED TOMORROW. CALLS APPROPRIATELY; CONTINENT.
[2019-08-14 05:09] LABS: Albumin, Blood 3.2 g/dL (3.4-5.0); Anion Gap 3 mmol/L (6-16); Blood Urea Nitrogen 18 mg/dL (8-24); CO2, Blood 32 mmol/L (21-32); Calcium, Blood 8.7 mg/dL (8.5-10.1); Chloride, Blood 104 mmol/L (98-108); Creatinine, Blood 0.82 mg/dL (0.60-1.20); Glomerular Filtration Rate >60 (60-); Glucose, Blood 160 mg/dL (70-99); Phosphorus, Blood 3.4 mg/dL (2.5-4.9); Potassium, Blood 4.2 mmol/L (3.5-5.5); Sodium, Blood 139 mmol/L (136-145)
--- NOTE | 2019-08-14 05:31 | NUR ---
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 His new oxygen condencer private pay arrived at his Sisters home yesterday and he is planning trip to visist Step DTR and Step Grandchild in [facility] for Thansgiving. Pt says he has supportive Brother in [place] who will accompany him from [place]. PT says several times that he doesn't trust his Sister who he is currently staying with since Wifes unexpected June 03. SW and Spiritual care referrals to assess support and provide support for DC. PT recieves services and oxygen through [facility]. Resting well tonight after Melatonin and trazodone 100 mg at HS for insommnia.
--- NOTE | 2019-08-14 17:09 | NUR ---
Pastoral care visit conducted. Pt was recumbent in bed watching football and welcomed this PC cordially. Pt began to share about his recent grief of losing his and proceeding to divulge his thoughts and emotions. Pt was loquacious and maintained expression the duration. Empathic listening, validating feedback, and pastoral encouragement extended. Pt reports anticipation of discharge on Friday. I will remain available for further PC support accordingly.
--- NOTE | 2019-08-14 17:40 | NUR ---
CALLED DR CHAPARRO AND INFORMED OF INCREASED HR SUSTAINING IN LOW 100S ALL AFTERNOON, WILL CONTINUE TO MONITOR
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
--- NOTE | 2019-08-15 04:15 | NUR ---
08/15/19 0410 AWAKENED FOR VITALS. PT HAD BEEN SLEEPING WELL PRIOR. VITALS STABLE. NO COMPLAINTS AT THIS TIME. O2 REMAINS AT 2LPM. UNEVENTFUL NIGHT.
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
[2019-08-15] MEDS ORDERED: ALBU3IS INH (11:18)
[2019-08-15] MEDS ORDERED: MELATONIN5 M1 PO (11:20)
[2019-08-15] MEDS ORDERED: BUDE.25 NEB (11:20)
--- NOTE | 2019-08-15 11:36 | NUR ---
I met with the pt as he was sitting on the side of his bed. Pt was alert and amicable. He states that he is in process for being discharged and proceeds to share about his current well-being. Pt is tearful whenever talking about his spouse while giving appreciation for her personhood and her impact on his life. Pastoral ip counsel extended while pt continue to reflect on his life narrative. Pt was appreciative and assurance of prayer given with validating feedback. Pt proceeded to anticipate his prospective discharge.
--- NOTE | 2019-08-15 15:43 | NUR ---
DISCHARGE NOTE- PT WAS GIVEN VERBAL AND WRITTEN DISCHARGE INSTRUCTIONS AND ACKNOWLEDGED UNDERSTANDING OF THEM. PT MEDICATIONS WERE FAXED TO [facility] PER PT REQUEST. PT SEEMED BETTER AFTER HIS VISIT WITH SPIRITUAL CARE. PT TOOK THE PHONE NUMBER PROVIDED TO HIM BY SPIRITUAL CARE AND STATED HE WILL CALL. PT AWARE OF ALL MEDICATIONS AND HOW THEY WERE ORDERED. WRITTEN EDUCATION PROVIDED WELL. PT WAS TAKEN HOME BY HIS SISTER. PT ESCORTED OUT VIA W/C BY THE LAY OUT INSPECTOR NO FURTHER QUESTIONS AT THE TIME OF DISCHARGE. IV DC'D PRIOR TO DISCHARGE.
== END 2019-08-15 12:15 | disposition home or self-care (01) | DRG 189 ==
LOC: ER 21:28 → MEDS 23:32 → ER 08-13 00:33 → MEDS 08-13 00:41 → ER 08-13 00:41 → MEDS 08-13 00:45
PROVIDERS: Emergency Medicine; Internal Medicine; ADMIT Hospitalist
DX: J96.21 Acute and chronic respiratory failure with hypoxia (principal); J44.1 Chronic obstructive pulmonary disease with (acute) exacerbation; E87.3 Alkalosis; R73.9 Hyperglycemia, unspecified; T38.0X5A Adverse effect of glucocorticoids and synthetic analogues, initial encounter; F43.21 Adjustment disorder with depressed mood; G47.00 Insomnia, unspecified; I10 Essential (primary) hypertension; N40.0 Benign prostatic hyperplasia without lower urinary tract symptoms; K21.9 Gastro-esophageal reflux disease without esophagitis; Z99.81 Dependence on supplemental oxygen; Z87.891 Personal history of nicotine dependence; Z91.013 Allergy to seafood; Z91.018 Allergy to other foods; Z79.82 Long term (current) use of aspirin; Z79.52 Long term (current) use of systemic steroids; Z79.899 Other long term (current) drug therapy
CPT/HCPCS: 36415; 71046; 80053; 80069; 84484; 85025; 93005; 93010; 94640; 94644; 94760; 96374; 97110; 97116; 97161; 97165; 97535; 99285-25; J1650; J2930; J7512

== ENCOUNTER 2021-05-03 11:09 | Emergency (ER) | payer OTHER, MEDICARE ==
[~2021-05-03] VITALS: Ht 167.6 cm; Wt 72.6 kg
[~2021-05-03 11:09] MED LIST changes: +ALBU2.5V5 INH; +BUDE.25 NEB; +DILT180 PO; +MELATONIN5 M1 PO; +Prednisone10 MG PO; +QUETIAPINE FUM100 M2 PO; +SEROQUEL25 MG PO; +SYMBICORT 160-4.6 GM INH; +Seroquel Xr50 MG PO; +TRAZ100 PO; +VITAMIN D31000 UNI1 PO
[2021-05-03 12:05] LABS: Alanine Aminotransfer (ALT/SGP 51 U/L (12-78); Albumin, Blood 3.3 g/dL (3.4-5.0); Albumin/Globulin Ratio 1.2 (0.8-1.8); Alk Phos 67 U/L (50-136); Anion Gap 9 mmol/L (6-16); Aspartate Aminotrans (AST/SGOT 52 U/L (12-37); Bilirubin, Total 0.6 mg/dL (0.1-1.0); Blood Urea Nitrogen 22 mg/dL (8-24); Bun/Creatinine Ratio 31.3 (12.0-20.0); CO2, Blood 28 mmol/L (21-32); Calcium, Blood 8.2 mg/dL (8.5-10.1); Chloride, Blood 100 mmol/L (98-108); Globulin, Blood 2.8 g/dL (2.2-4.0); Glomerular Filtration Rate >60 (60-); Glucose, Blood 204 mg/dL (70-99); Potassium, Blood 3.9 mmol/L (3.5-5.5); Sodium, Blood 137 mmol/L (136-145); Total Protein, Blood 6.1 g/dL (6.4-8.2); Troponin I 0.017 ng/mL (0.000-0.040)
[2021-05-03] MEDS ORDERED: MOBIC15 MG PO (12:08)
[2021-05-03 12:38] LABS: BASOPHILS ABSOLUTE AUTO 0.04 K/mm3 (0.00-0.23); BASOPHILS PERCENT AUTO 0 % (0-2); EOSINOPHILS ABSOLUTE AUTO 0.03 K/mm3 (0.00-0.68); EOSINOPHILS PERCENT AUTO 0 % (0-6); Hematocrit 38.8 % (37.0-53.0); Hemoglobin 12.6 g/dL (13.5-17.5); IMMATURE GRAN ABSOLUTE AUTO 0.05 K/mm3 (0.00-0.10); IMMATURE GRAN PERCENT AUTO 1 % (0-1); LYMPHOCYTES ABSOLUTE AUTO 0.56 K/mm3 (0.84-5.20); LYMPHOCYTES PERCENT AUTO 6 % (21-46); MONOCYTES ABSOLUTE AUTO 0.35 K/mm3 (0.16-1.47); MONOCYTES PERCENT AUTO 4 % (4-13); Mean Corpuscular HGB 30.1 pg (26.0-34.0); Mean Corpuscular HGB Conc 32.5 g/dL (31.5-36.5); Mean Corpuscular Volume 93 fL (80-100); NEUTROPHILS ABSOLUTE AUTO 8.07 K/mm3 (1.96-9.15); NEUTROPHILS PERCENT AUTO 89 % (41-73); Red Blood Cell Count 4.18 M/mm3 (4.30-5.90)
[2021-05-03 12:49] LABS: Mean Platelet Volume 10.7 fL (9.1-12.4); Platelet Count 146 K/mm3 (150-400)
[2021-05-03] MEDS ORDERED: Prednisone20 MG PO (14:43)
== END 2021-05-03 18:10 | disposition home or self-care (01) ==
LOC: ER 11:09
PROVIDERS: Emergency Medicine
DX: J44.1 Chronic obstructive pulmonary disease with (acute) exacerbation (principal); Z91.013 Allergy to seafood; Z79.899 Other long term (current) drug therapy; Z87.891 Personal history of nicotine dependence
CPT/HCPCS: 71045; 80053; 84484; 85025; 93005; 93010; 94640; 96374; 99285-25; J2930

== ENCOUNTER 2022-03-28 14:52 | Inpatient (IN) | payer OTHER ==
[~2022-03-28] VITALS: Ht 162.6 cm; Wt 68.0 kg
[~2022-03-28 14:52] MED LIST changes: +ACET325 PO; +MOBIC15 MG PO; +Prednisone20 MG PO; +Tessalon200 MG PO
[2022-03-28 15:26] LABS: BASOPHILS ABSOLUTE AUTO 0.01 K/mm3 (0.00-0.23); BASOPHILS PERCENT AUTO 0 % (0-2); EOSINOPHILS PERCENT AUTO 0 % (0-6); Hematocrit 39.9 % (37.0-53.0); Hemoglobin 12.6 g/dL (13.5-17.5); IMMATURE GRAN ABSOLUTE AUTO 0.06 K/mm3 (0.00-0.10); IMMATURE GRAN PERCENT AUTO 1 % (0-1); LYMPHOCYTES ABSOLUTE AUTO 0.45 K/mm3 (0.84-5.20); LYMPHOCYTES PERCENT AUTO 5 % (21-46); MONOCYTES ABSOLUTE AUTO 0.24 K/mm3 (0.16-1.47); MONOCYTES PERCENT AUTO 3 % (4-13); Mean Corpuscular HGB 29.9 pg (26.0-34.0); Mean Corpuscular HGB Conc 31.6 g/dL (31.5-36.5); Mean Corpuscular Volume 95 fL (80-100); Mean Platelet Volume 10.2 fL (9.1-12.4); NEUTROPHILS ABSOLUTE AUTO 7.79 K/mm3 (1.96-9.15); NEUTROPHILS PERCENT AUTO 91 % (41-73); Platelet Count 255 K/mm3 (150-400); RDW Coefficient Variation 12.9 % (11.7-14.2); RDW Standard Deviation 44.5 fL (35.1-46.3); Red Blood Cell Count 4.21 M/mm3 (4.30-5.90); White Blood Cell Count 8.55 K/mm3 (4.00-11.30)
[2022-03-28 15:51] LABS: Albumin, Blood 3.2 g/dL (3.4-5.0); Bilirubin, Total 0.2 mg/dL (0.1-1.0); Bun/Creatinine Ratio 36.4 (12.0-20.0); Calcium, Blood 9.3 mg/dL (8.5-10.1); Creatinine, Blood 0.52 mg/dL (0.60-1.20); Globulin, Blood 3.3 g/dL (2.2-4.0); Potassium, Blood 4.6 mmol/L (3.5-5.5); Total Protein, Blood 6.5 g/dL (6.4-8.2)
[2022-03-28 15:57] LABS: Base Excess Venous 13.3 mmol/L; PCO2 Venous 57.3 mmHg (38-42); PO2 Venous 165 mmHg (38-42); pH Blood Venous 7.43 (7.34-7.37)
[2022-03-28 16:32] LABS: Influenza A, PCR NEGATIVE (NEGATIVE); Influenza B, PCR NEGATIVE (NEGATIVE); Resp Syncytial Virus, PCR NEGATIVE (NEGATIVE); SARS-Cov-2 (COVID-19) PCR, MMC NEGATIVE (NEGATIVE)
--- NOTE | 2022-03-28 18:57 | NUR ---
ARRIVAL TO PCU AT 1830 REPORT FROM KIA SAUCEDO. PT ARRIVES ON 4L VIA NC. LABORED RESP, SOB c MINIMAL EXERTIONS. RT PLACED PT ON BIPAP /6/35%. WOB IMPROVED. LUNGS DIM c WHEEZES THROUGHOUT. HX OF COPD c HOME O2 AT 4L. UNABLE TO OBTAIN HX FROM PT D/T SOB. ST ON MONITOR, RATE 110-120'S. BP STABLE. PT STATES SISTER CARES FOR HIM, BED BOUND. PT c DRIED STOOL. CLEANED, SKIN INTACT. ELBOWS RED. 22G IV TO RH. AZITHROMYCIN INFUSING. WILL REPORT TO ONCOMING NURSE.
--- NOTE | 2022-03-28 22:12 | NUR ---
SEE CARDIOPULMONARY EDUCATION PROCESS INTERVENTION. PT INSP FLOW INSUFFICENT FOR SPIRIVA HANDI-HALER AT HOME AND LIKELY NEEDS SWITCHED TO SPIRIVA RESPIMATE FOR HOME MEDICATION MINIMUM FLOW REQUIRED IS 60L/M AND IS BARELY ABLE TO PRODUCE 45L/M.
[2022-03-29 04:20] LABS: BASOPHILS ABSOLUTE AUTO 0.01 K/mm3 (0.00-0.23); BASOPHILS PERCENT AUTO 0 % (0-2); EOSINOPHILS PERCENT AUTO 0 % (0-6); Hematocrit 34.7 % (37.0-53.0); Hemoglobin 11.1 g/dL (13.5-17.5); IMMATURE GRAN ABSOLUTE AUTO 0.04 K/mm3 (0.00-0.10); IMMATURE GRAN PERCENT AUTO 1 % (0-1); LYMPHOCYTES ABSOLUTE AUTO 0.33 K/mm3 (0.84-5.20); LYMPHOCYTES PERCENT AUTO 5 % (21-46); MONOCYTES ABSOLUTE AUTO 0.04 K/mm3 (0.16-1.47); MONOCYTES PERCENT AUTO 1 % (4-13); Mean Corpuscular HGB 29.8 pg (26.0-34.0); Mean Corpuscular Volume 93 fL (80-100); NEUTROPHILS ABSOLUTE AUTO 6.03 K/mm3 (1.96-9.15); NEUTROPHILS PERCENT AUTO 94 % (41-73); Platelet Count 224 K/mm3 (150-400); RDW Coefficient Variation 12.8 % (11.7-14.2); RDW Standard Deviation 43.8 fL (35.1-46.3); Red Blood Cell Count 3.73 M/mm3 (4.30-5.90); White Blood Cell Count 6.45 K/mm3 (4.00-11.30)
[2022-03-29 04:38] LABS: Bun/Creatinine Ratio 35.3 (12.0-20.0); Calcium, Blood 8.7 mg/dL (8.5-10.1); Creatinine, Blood 0.54 mg/dL (0.60-1.20)
--- NOTE | 2022-03-29 06:23 | NUR ---
Overnight with some SpO2 issues, 88-94% all night BiPaP cuurently (30% fi02, 10/01), all other VSS. He does desat with any activity or break between BiPaP and taking sips with meds, cough still an issues, codeine cough syrup seems helpful, will continue to monitor LEWIS Thomas
--- NOTE | 2022-03-29 12:39 | NUR ---
AM NOTE: PATIENT ALERT AND ORIENTED X3-4. VERY ANXIOUS AND RELUCTANT TO PARTICIPATE IN CARE. OVERALL WEAK. STATES HE CANNOT SIT UP OR STAND UP. PATIENT ABLE TO SIT UP WITH ASSISTANCE TO EAT SMALL AMOUNT AND DRINK SIPS OF WATER. STATES HE HAS BILATERAL LEG PAIN THAT OVERALL ACHES AND IF HE MOVES HIS LEGS IT CAUSES SHARP PAIN. TELE SHOWING SINUS RHYTHM - SINUS TACH. HR 90-110'S. DENIES CHEST PAIN/PRESSURE. VITAL SIGNS STABLE. ON BIPAP - SETTINGS 12/6 AT 30% FIO2, SATING LOW 90'S. ABLE TO TRANSITION TO NASAL CANNULA AT 8L FOR 2 MIN WHEN EATING OR TAKING PILLS. LUNGS SOUNDS DIMINISHED. ATTENDS IN PLACE, USING URINAL WITH ASSISTANCE. DENIES ABDOMINAL PAIN/NAUSEA. ATE VERY SMALL AMOUNT OF LUNCH THIS AFTERNOON. CALL LIGHT IN REACH. SISTER IN TO VISIT. RESP CARE IN FOR BREATHING TREATMENTS. ANTIBIOTICS INFUSED. WILL CONTINUE TO MONITOR.
--- NOTE | 2022-03-29 18:44 | NUR ---
SHIFT SUMMARY: NO ACUTE CHANGES. TELE REMAINS SINUS RHYTHM - SINUS TACH WITH HR 90-110'S. DENIES CHEST PAIN. BP STABLE. REMAINS ON BIPAP 12/6 AND 30% FIO2. AT TIMES NEEDING INCREASED OXYGEN WHEN REPOSITIONING IN BED. ABLE TO TITRATE DOWN TO 8L NASAL CANNULA FOR 5 MIN PERIODS FOR DINNER. SATING LOW - MID 90'S. EATING AND DRINKING SMALL AMOUNTS THOUGHOUT DAY. COMPLAINS OF LEG PAIN THAT IS RELIEVED WITH REPOSITIONING. VERY ANXIOUS AND EMOTIONAL. CALL LIGHT IN REACH. CONDOM CATH IN PLACE. PLAN FOR PALLIATIVE CARE TO VISIT WITH PATIENT TOMORROW. WILL CONTINUE TO MONITOR AND REPORT OFF.
[2022-03-30 03:35] LABS: PCO2 Arterial 57.1 mmHg (35-45); PO2 Arterial 75.8 mmHg (80-100); pH Blood Arterial 7.46 (7.35-7.45)
--- NOTE | 2022-03-30 03:48 | NUR ---
Overnoc without issues, anxiety managed with hydroxyzine, seroquil. Dilaudid was held at 0000 ---> pt drowsy, and no air hunger present. same BiPaP settings as previous night. BiPaP settings(10/01 30% fio2)---> 88-94% all shift, still desats rapidly without NIV in place. Will continue to monitor LEWIS Thomas
[2022-03-30 04:20] LABS: BASOPHILS ABSOLUTE AUTO 0.01 K/mm3 (0.00-0.23); BASOPHILS PERCENT AUTO 0 % (0-2); EOSINOPHILS PERCENT AUTO 0 % (0-6); Hematocrit 36.7 % (37.0-53.0); Hemoglobin 11.8 g/dL (13.5-17.5); IMMATURE GRAN ABSOLUTE AUTO 0.04 K/mm3 (0.00-0.10); IMMATURE GRAN PERCENT AUTO 1 % (0-1); LYMPHOCYTES ABSOLUTE AUTO 0.43 K/mm3 (0.84-5.20); LYMPHOCYTES PERCENT AUTO 5 % (21-46); MONOCYTES ABSOLUTE AUTO 0.12 K/mm3 (0.16-1.47); MONOCYTES PERCENT AUTO 1 % (4-13); Mean Corpuscular HGB 29.6 pg (26.0-34.0); Mean Corpuscular HGB Conc 32.2 g/dL (31.5-36.5); Mean Corpuscular Volume 92 fL (80-100); Mean Platelet Volume 10.2 fL (9.1-12.4); NEUTROPHILS ABSOLUTE AUTO 8.07 K/mm3 (1.96-9.15); NEUTROPHILS PERCENT AUTO 93 % (41-73); Platelet Count 252 K/mm3 (150-400); RDW Coefficient Variation 12.8 % (11.7-14.2); RDW Standard Deviation 43.6 fL (35.1-46.3); Red Blood Cell Count 3.98 M/mm3 (4.30-5.90); White Blood Cell Count 8.67 K/mm3 (4.00-11.30)
[2022-03-30 04:42] LABS: Bun/Creatinine Ratio 59.1 (12.0-20.0); Calcium, Blood 9.3 mg/dL (8.5-10.1); Creatinine, Blood 0.59 mg/dL (0.60-1.20); Potassium, Blood 3.9 mmol/L (3.5-5.5)
--- NOTE | 2022-03-30 10:12 | NUR ---
AM NOTE: PATIENT ALERT AND ORIENTED X3-4. VERY ANXIOUS AND UNABLE TO COMFORT AT TIMES. PATIENT STATES "I AM GOING TO ". ABLE TO MOVE ALL EXTREMITIES. SOME SORENESS IN LEGS, TYLENOL GIVEN THIS AM. Q2 TURNING AND NEEDED. OVERALL VERY WEAK. TELE SHOWING SINUS TACH WITH HR 100-110'S. DENIES CHEST PAIN/PRESSURE. VITAL SIGNS STABLE. NO SIGNS OF EDEMA. ON BIPAP 12/6 AND 30% FIO2 SATING LOW 90'S. VERY LABORED BREATHING WITH ACCESSORY MUSCLE USAGE. ABLE TO COME OFF ON 8L NASAL CANNULA VERY BRIEFLY TO EAT AND DRINK FLUIDS. DENIES ABDOMINAL PAIN/NAUSEA. CALL LIGHT IN REACH. PALLIATIVE CARE IN THIS AM. NEW MEICATIONS ORDERD. PATIENT REQUESTING SISTER COME IN TO GIVE HER INSTRUCTIONS. SISTER CORBY CALLED AND ON WAY IN. DR. IRBY UPDATED. PATIENT RESTING AT THIS TIME.
--- NOTE | 2022-03-30 11:39 | NUR ---
Initial visit made after update obtained from pt's RN and EMR. Pt is frantic when I stepped into the room. He had just pushed his call light and needed pillows placed between ankles and knees due to what he described as severe leg pain. Pt wants me to call his sister urgently. He has TOD instructions he is rapidly telling me, which I wrote down. Pt states he is dying and not leaving the hospital. I did a s/s assessment and find that pt is not experiencing relief of anxiety, air hunger or pain with the current medications ordered. RN confirms this is her assessment also. T/c to Dr with new orders obtained and entered. I returned to room to let pt know his sister was on her way in and discuss s/s management, new medications and plan. Pt again is frantically talking about dying. I asked him if he was wanting to or if he was scared that he might be dying? He stated, "It's just a fact. I am done". I told him I could not confirm that and I did not know whether he was dying or not. We discussed primary goal at this time is to get his dyspnea, air hunger, pain and anxiety better managed. Pt in agreement with that goal. Dr will be rounding soon and evaluate for progress with tx. Discussed my visits with Dr and RN afterwards. Would like to discuss advanced care planning with pt later if he would like to when anxiety managed to his satisfaction. He is also most concerned with his 's ashes and the care of his two little dogs. He has had multiple close family members in recent months, including his .
--- NOTE | 2022-03-30 15:31 | NUR ---
Return visit to room with sister at bedside. Pt had bipap on and slept t/o my visit despite no attempt made to be quiet with conversation. RN reports that Roxanol and Ativan given per orders today have been helpful in allowing pt to rest/sleep, decrease pain and anxiety, along with breathlessness. She also noted that when pt was awake he was less irritable and agitated. Sister, Kaela, states she has cared for her brother for 1-2 years. Pt has lived with her since his 2-3 years ago and pt lost his living situation at that time also. She plans to take pt back home when he is released from Hospital. They have had HH PT in the past. Pt has a walker, wheelchair, O2, BSC, shower chair at home. Hospital bed may be needed and any additional resp support DME if needed. Kaela states she and HH PT spoke about hospice care in the future but she has not spoken to her brother about it. She states that he has been saying that he is dying for a very long time now, months to years. I reviewed medication changes with her, including the Buspar ordered for chronic anxiety and need to cont that for improved chronic anxiety management. Sister would like me to return when pt is awake tomorrow to speak with him about fdc care goals and decisions he may want to review. She is his proxy medical decision maker and understands that she will not be asked to make decisions as long as pt is able to express his needs/wishes. Update given to RN on my visit afterwards. Plan return visit tomorrow am if possible. states she will be in again in the [facility] also.
--- NOTE | 2022-03-30 18:32 | NUR ---
SHIFT SUMMARY: ANXIETY IMPROVED WITH HELP FROM PALLIATIVE CARE. NEURO REMAINS UNCHANGED. ANXIOUS STILL AT TIMES, BUT IMPROVED. NO CHANGES TO TELE - REMAINS SINUS TACH WITH HR 90-110'S. DENIES CHEST PAIN/PERSSURE. BP STABLE. REMAINS ON BIPAP 12/6 AND 30% FIO2. AIR HUNGER IMPROVED. ABLE TO COME OFF FOR MEAL BREAKS WITH 8L NASAL CANNULA. TOLERATING PO DIET. PALLIATIVE CARE IN TODAY AND SPENT EXTENSIVE TIME WITH PATIENT AND SISTER. SLEEPING AT THIS TIME. CALL LIGHT IN REACH. WILL CONTINUE TO MONITOR AND REPORT OFF TO ONCOMING RN.
[2022-03-31 03:52] LABS: PO2 Arterial 82.9 mmHg (80-100); pH Blood Arterial 7.38 (7.35-7.45)
--- NOTE | 2022-03-31 04:01 | NUR ---
Overnoc with some anxiety, liquid morphine and ativan PO helps and allows for sleep. Pt BiPaP settings the same, SpO2 remains better than previous night but he still endorses SOB Intermittently, afebrile, will continue to monitor LEWIS Thomas
--- NOTE | 2022-03-31 08:49 | NUR ---
AM NOTE: PATIENT SEEMS MORE CONFUSED THIS AM THAN PREVIOUS DAY SHIFT. ANXIOUS AND AGGITATED AT TIMES. PERRLA. ALERT AND ORIENTED X3. FORGETFUL AT TIMES. TELE SHOWING SINUS RHYTHM - SINUS TACH WITH HR 90-110'S. BP STABLE. DENIES CP. ON BIPAP 10/01 AT 30% FIO2 SATING MID 90'S. AT TIMES WHEN ANXIOUS NEEDING TO TITRATE FIO2 UP. ABLE TO COME OFF THIS AM FOR 5 MIN ON 8L NASAL CANNULA TO EAT A SMALL AMOUNT. ROXANOL AND ATIVAN SEEM TO BE HELPING MORE WITH ANXIETY. VERY LABORED/SHALLOW BREATHING. DIMINISHED LUNG SOUNDS. OCCASIONAL COUGH. ANTIBIOTICS INFUSED THIS AM. SLEEPING AT THIS TIME. WILL CONTINUE TO MONITOR.
--- NOTE | 2022-03-31 09:00 | NUR ---
Case conferenced with pt's RN and received report on current status and concerns t/o yest cheng/noc. Pt's CO2 is increased despite cont bipap use. Anixety and dyspnea continue to be a problem but RN reports pt is getting relief and is able to rest with 10 MG Roxanol alternating at times with Ativan per eMAR. Pt is also having difficulty using a urinal. Noc RN placed condom cath for increased comfort and less distress to pt with voiding. Sister asked that I discuss goals of care and options available with pt when she returns today. RN to page me when sister, Kaela, arrives.
--- NOTE | 2022-03-31 12:30 | NUR ---
Case conferenced with pt's RN, sister and t/o am. Pt remains somnolent but opened eyes on my most recent attempt to visit. Pt was able to remain awake, and appropriately respond to questions and conversation for a couple minutes with sister at bedside also. Pt appears prfoundly exhausted with respiratory effort but he is calm and appears comfortable. He is utilizing abdominal, chest, neck and shoulder muscles to breathe. He has bipap in place. I explained to sister and pt why wants goal of pulse oximetry to be lower with CO2 retention pt is experiencing. 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 She would like a couple other family members to come and visit if possible. Instructed that now would be a good time for them to come while pt is coherent and knows they are here. I told her he may turn the corner again for the better and rally but I cannot guarantee due to very limited reserves and exhaustion with resp effort. Pt is clear that he does not want CPR or intubation. While he was awake I was able to assure him we would follow his wishes and that if he did not want to cont with agressive tx and/or bipap, we would respect that. Pt remained calm while awake. He seems very comforted by his sister's presence. Report given to pt's RN after my visit. Will follow daily for s/s management and support.
--- NOTE | 2022-03-31 18:13 | NUR ---
SHIFT SUMMARY: PATIENT RESTING THROUGHOUT SHIFT. ANXIETY MUCH BETTER CONTROLLED. SISTER AND BROTHER IN TO VISIT. SISTER INFORMED THIS RN, THAT BROTHER FROM [place] IS ON WAY TO VISIT. PATIENT TIRED AND WORN OUT. ABLE TO TAKE VERY SMALL BREAKS FROM BIPAP TO TAKE SIPS OF WATER AND EAT. WEARING BIPAP AND SATING 88-92%. NO CHANGES TO TELE. Q2 TURNING AND NEEDED. AT TIMES PATIENT REFUSING TURNS. AC BLOOD SUGARS. SISTER AT BEDSIDE AT THIS TIME. CALLING FOR NEEDS. WILL CONTINUE TO MONITOR AND REPORT OFF TO ONCOMING RN.
--- NOTE | 2022-03-31 20:29 | NUR ---
ATTEMPTED TO TAKE BIPAP MASK OFF OF PATIENT TO GIVE SIP OF WATER AND MEDICATIONS, PT DESAT TO 80% AND WAS COUGHING WITH FIRST ATTEMPT AT MEDICATION. MADE CLINICAL JUDGEMENT TO REPLACE BIPAP MASK AND HOLD MEDICATIONS AT THIS TIME.
[2022-04-01 00:21] LABS: Source, Urine Foley catheter
[2022-04-01 00:38] LABS: Bilirubin, Urine Neg (Neg); Blood, Urine 3+ (Neg); Color, Urine Yellow (P-Yellow); Glucose Qualitative, Urine 1+ (Neg); Ketones, Urine 1+ (Neg); Leukocyte Esterase, Urine Neg (Neg); Nitrite, Urine Neg (Neg); Protein, Urine 1+ (Neg); Specific Gravity, Urine 1.025 (1.003-1.022); Urobilinogen, Urine NORM (Normal)
[2022-04-01 00:51] LABS: Appearance, Urine Hazy (Clear)
[2022-04-01 00:52] LABS: Amorphous Light (0-Heavy); Bacteria Many /hpf; Calcium Oxalate Crystals Rare /hpf; White Blood Cells, Urine 0-2 /hpf (0-5)
[2022-04-01 00:53] LABS: Squamous Epithelial Cells Rare /hpf (Few)
[2022-04-01 00:54] LABS: Renal Epithelial Rare /hpf (0-Rare)
[2022-04-01 04:44] LABS: PCO2 Arterial 68.8 mmHg (35-45); pH Blood Arterial 7.39 (7.35-7.45)
--- NOTE | 2022-04-01 06:15 | NUR ---
SHIFT SUMMARY A/O X3- VITAL SIGNS STABLE. PT REMAINS ON BIPAP. MINIMAL CONFUSION AT BEGINING OF SHIFT. ATIVAN GIVEN FOR ANXIETY. PT SLEPT MOST OF THE NIGHT AFTER ATIVAN GIVEN. CHAVEZ CATH PLACED DUE TO INCONTINENCE AND PT UNABLE TO AMBULATE, CHAVEZ DRAINING JAN URINE TO GRAVITY. WILL CONTINUE TO MONITOR AND REPORT TO ONCOMING RN.
--- NOTE | 2022-04-01 11:50 | NUR ---
Stopped by to visit. Pt sleeping with bipap on. He did not wake to voice or gentle touch. I did not disturb him. No family at bedside. Plan to try again later today to connect with pt/sister for support and advanced care planning if desired.
--- NOTE | 2022-04-01 15:32 | NUR ---
[facility] visit. Pt is awake & frantic about getting a fan placed with airflow on face. Fan had been relocated to make room for meal tray (untouched). I replaced fan on overbed table within pt's reach. RT in room initiating a tx. Case conferenced with pt's RN re: medication changes and sister's stated plan to gather siblings to visit pt. She was in earlier per RN but not at bedside currently. Pt had extreme uncontrolled anxiety when I first met him late last week. 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 I am concerned that his anxiety will escalate again. Pt has expressed that he is dying to numerous staff and physicians. Comfort care may be best way to treat extreme anxiety, agitation, air hunger and leg pain if resp status does not improve with current medication changes and tx of severe COPD. Pt's air hunger and anxiety were markedly improved and he remained easy to wake when he was receiving 5-10 mg Roxanol SL prn over the weekend.
--- NOTE | 2022-04-01 18:09 | NUR ---
Shift Summary Pt appears to be sleeping t/o shift, wakes to verbal stimuli, oriented to person, family and place. At this time pt is irritable and aggitated, yelling at staff. Pt denies pain, chest pain, nausea, and dzziness. Pt sob at rest, bipap 10-12/5-6 setting, spo2 >90% for majority of shift, ls dim t/o exp wheeze in bases, pt only able to tolerate short breaks off bipap on 3-6l o2 via nc; Dr Jose at bedside. Tele sinus tach, bp stable. Abd moderate distension, firm nontender, hypoactice X4 quad, pt refusing senakot, educated on last bm, pt continues to refuse. Other vss. Oral care completed Q4 hours. Repositioned q2. [place] in place, patent and draining. No other acute changes noted. Will continue to monitor unitl report given to oncoming rn.
[2022-04-02 03:18] LABS: PCO2 Arterial 60.2 mmHg (35-45); PO2 Arterial 62.2 mmHg (80-100); pH Blood Arterial 7.45 (7.35-7.45)
[2022-04-02 04:33] LABS: BASOPHILS PERCENT AUTO 0 % (0-2); EOSINOPHILS PERCENT AUTO 0 % (0-6); Hematocrit 39.3 % (37.0-53.0); Hemoglobin 12.4 g/dL (13.5-17.5); IMMATURE GRAN ABSOLUTE AUTO 0.11 K/mm3 (0.00-0.10); IMMATURE GRAN PERCENT AUTO 2 % (0-1); LYMPHOCYTES ABSOLUTE AUTO 0.24 K/mm3 (0.84-5.20); LYMPHOCYTES PERCENT AUTO 4 % (21-46); MONOCYTES ABSOLUTE AUTO 0.08 K/mm3 (0.16-1.47); MONOCYTES PERCENT AUTO 1 % (4-13); Mean Corpuscular HGB 29.7 pg (26.0-34.0); Mean Corpuscular HGB Conc 31.6 g/dL (31.5-36.5); Mean Corpuscular Volume 94 fL (80-100); Mean Platelet Volume 10.2 fL (9.1-12.4); NEUTROPHILS ABSOLUTE AUTO 5.91 K/mm3 (1.96-9.15); NEUTROPHILS PERCENT AUTO 93 % (41-73); NRBC ABSOLUTE 0.02 K/mm3 (0.00-0.02); NRBC Auto 0.3 /100 WBC (0.0-0.2); Platelet Count 252 K/mm3 (150-400); RDW Coefficient Variation 12.9 % (11.7-14.2); RDW Standard Deviation 44.6 fL (35.1-46.3); Red Blood Cell Count 4.18 M/mm3 (4.30-5.90); White Blood Cell Count 6.34 K/mm3 (4.00-11.30)
[2022-04-02 04:54] LABS: Albumin, Blood 3.3 g/dL (3.4-5.0); Albumin/Globulin Ratio 1.1 (0.8-1.8); Bilirubin, Total 0.5 mg/dL (0.1-1.0); Bun/Creatinine Ratio 80.9 (12.0-20.0); Calcium, Blood 9.1 mg/dL (8.5-10.1); Creatinine, Blood 0.61 mg/dL (0.60-1.20); Globulin, Blood 2.9 g/dL (2.2-4.0); Potassium, Blood 4.1 mmol/L (3.5-5.5); Total Protein, Blood 6.2 g/dL (6.4-8.2)
--- NOTE | 2022-04-02 13:36 | NUR ---
Contacted early this am from nursing reporting pt very axious, agitated, dyspnic and painful requesting assist with conversation re: comfort care option. This had been planned with pt and sister and she was en route. When sister arrived, RN paged and I returned to room. Pt was on bipap and sister asked if it could be taken off for a bit while we spoke, which we did. Pt maintained saturations but work of breathing cont to increase with all accessory muscles in use and pt became even more fatigued. He had a hard time moving enough air to be heard with talking. Pt cont to c/o significant amalia LE pain. Sister, pt and I reviewed options and attempted to illicit pt choice. Dr arrived & gave a very comprehensive update on pt's severe ES COPD, CO2 retention, complicating factors and options for care depending on pt's goals. Pt is clear that he wants the roxanol for air hunger and pain. He wants to be home with his sister and pets. He vacillated back and forth but was consistent in those wishes. Sister verbalized that she wants to take him home with hospice and that she would like him to receive comfort care medications to treat his anxiety and extreme work of breathing while arrangements are being made. updated CM who started referral process. RN updated and VO for comfort care obtained and entered.
--- NOTE | 2022-04-02 16:10 | NUR ---
f/u comfort care visit. Pt appears less dyspnic with roxanol administration x 2 per eMar but remains fairly anxious. Discussed alternating judicious dose of ativan per eMAR and Roxanol with RN for better management of anxiety. Pt is wanting freq breaks from bipap but when removed per his request it is a short time before he wants it back on per RN. Plan f/u assessment in am. Plan is for [facility] transport home with [facility] f/u tomorrow am.
--- NOTE | 2022-04-02 16:37 | NUR ---
Shift Summary Pt transitioned to comfort care this am. Alert, oriented x2, with intermittent confusion. Pt aggitated and anxious for majority of shift. Spo2 >90% on 3-6l o2 via nc or bipap per pt request. At times pt having increased resp rate and effort, medicated per emar. Pt repositioned for comfort. Pt appears to be resting. Will continue to monitor.
--- NOTE | 2022-04-03 06:41 | NUR ---
SHIFT SUMMARY PT RESTED WELL THROUGH THE NIGHT. CC MEASURES. SEE EMAR.
--- NOTE | 2022-04-03 07:49 | NUR ---
Am note Pt appears to be sleeping, wakes easily to verbal stimuli. Pt oriented x3, intermittent confusion at times. Pt denies pain, chest pain, nausea, dizziness. Pt sob with exertion, spo2 88-91% on2l o2 via nc, breathing deep, even, ls exp wheeze t/o. Heart r/r regular, no edema noted. Abd moderately distened, firm nontedner with normoactive bt x4 quad. No s/sx of distress noted at this time. No other acute changes noted. Will continue to monitor.
--- NOTE | 2022-04-03 10:31 | NUR ---
DISCHARGE SUMMARY Pt medicated per for airhunger x2, breathing labored and o2 increased to 4l o2 via nc. Pt settled. Pt refusing scheduled medication this am. No other acute changes. Notified Daria pt sister this am that plan for patients transport home at 1000. Pt left here at 1013 with [facility] transport.
== END 2022-04-03 10:13 | disposition hospice, home (50) | DRG 189 ==
LOC: ER 14:52 → PCU 18:08
PROVIDERS: Emergency Medicine; Internal Medicine; ADMIT Internal Medicine
PROC: 5A09457 Assistance with Respiratory Ventilation, 24-96 Consecutive Hours, Continuous Positive Airway Pressure (ICD-10-PCS; principal; 2022-03-28)
PROC: 3E03329 Introduction of Other Anti-infective into Peripheral Vein, Percutaneous Approach (ICD-10-PCS; 2022-03-28)
DX: J96.21 Acute and chronic respiratory failure with hypoxia (principal); R78.81 Bacteremia; E87.3 Alkalosis; J96.22 Acute and chronic respiratory failure with hypercapnia; J43.9 Emphysema, unspecified; Z66 Do not resuscitate; F41.1 Generalized anxiety disorder; Z51.5 Encounter for palliative care; F32.A Depression, unspecified; I10 Essential (primary) hypertension; Z20.822 Contact with and (suspected) exposure to COVID-19; K21.9 Gastro-esophageal reflux disease without esophagitis; B95.4 Other streptococcus as the cause of diseases classified elsewhere; N40.0 Benign prostatic hyperplasia without lower urinary tract symptoms; G47.00 Insomnia, unspecified; R73.9 Hyperglycemia, unspecified; F29 Unspecified psychosis not due to a substance or known physiological condition; T38.0X5A Adverse effect of glucocorticoids and synthetic analogues, initial encounter; Z79.82 Long term (current) use of aspirin; Z99.81 Dependence on supplemental oxygen; Z87.891 Personal history of nicotine dependence; Z85.46 Personal history of malignant neoplasm of prostate; Z91.013 Allergy to seafood; Z79.51 Long term (current) use of inhaled steroids; Z79.899 Other long term (current) drug therapy; Z79.52 Long term (current) use of systemic steroids
CPT/HCPCS: 0241U; 36415; 36600; 71045; 80048; 80053; 81001; 82803; 82947; 83605; 83880; 84145; 84484; 85025; 87040; 93005; 93010; 94640; 94644; 94660; 94664; 94667; 94760; 94762; 96361; 96374; 96375; 99285-25; A9270; C9113; J0456; J0696; J1650; J2060; J2920; J2930; J7030; J7050; J7512; Q0177